=== PATIENT | female | born 1940 | race Caucasian/White ===

== ENCOUNTER 2017-05-12 08:07 | Emergency (ER) | payer OTHER ==
[2017-05-12] MEDS ORDERED: FUROSEMIDE 40 MG SOL IV ONE (08:44)
[2017-05-12] MEDS ORDERED: FUROSEMIDE 40 MG SOL ONE (08:45)
[2017-05-12 08:47] LABS: ABG PH 7.4 (7.35-7.45)
[2017-05-12 08:49] VITALS: TEMP 99.2
[2017-05-12 08:55] LABS: BASOPHILS % (AUTO) 1 % (0-3); EOSINOPHILS % (AUTO) 1 % (0-9); HEMATOCRIT 32 % (35-47); MEAN CORPUSCULAR HGB CONC 35.2 gm/dl (32.0-36.0); MEAN CORPUSCULAR VOLUME 88 fL (81-99); NEUTROPHILS % (AUTO) 77.8 % (37-80)
[2017-05-12 09:04] LABS: CALCIUM 8.7 mg/dl (8.5-10.1); POTASSIUM 4.3 mMol/L (3.5-5.1)
[2017-05-12] MEDS ORDERED: ENOXAPARIN 80 MG SOL SC ONE (09:45)
[2017-05-12] MEDS ORDERED: ENOXAPARIN 40 MG SOL SC ONE (10:00)
[2017-05-12] MEDS ORDERED: ENOXAPARIN 60 MG SOL SC ONE (10:00)
[2017-05-12 10:07] VITALS: BP 138/55; PULSE 48; RESP 19; O2SAT 99
== END 2017-05-12 10:30 | disposition short-term general hospital (02) | DRG 204 ==
LOC: ED 08:07
DX: R06.02 Shortness of breath (principal); E10.9 Type 1 diabetes mellitus without complications; R00.1 Bradycardia, unspecified; R79.1 Abnormal coagulation profile; R79.89 Other specified abnormal findings of blood chemistry; Z79.4 Long term (current) use of insulin; R60.9 Edema, unspecified; N28.9 Disorder of kidney and ureter, unspecified
CPT/HCPCS: 71010; 80048; 82803; 83880; 84443; 84484; 85025; 85378; 85610; 93005; 96372; 96374; 99285; 99291; J1650; J1940